=== PATIENT | male | born 1940 | race Caucasian/White ===

== ENCOUNTER 2024-04-18 12:12 | Emergency (ER) | payer OTHER, MEDICAID ==
[~2024-04-18] VITALS: Ht 167.6 cm; Wt 77.1 kg
--- NOTE | 2024-04-18 12:12 | NUR ---
83M CONFUSED PATIENT BIB BLS/ STRETCHER FROM [facility] WITH CC DISLODGED G TUBE. PER EMT, PT USED TO HAVE SIZE 20 GTUBE WHICH WAS PULLED OUT BY PATIENT. FAMILITY REQUESTING REPLACEMENT WITH SIZE 16. PT ALSO REPORTED TO HAVE BEEN GIVEN ATIVAN 1MG IM PRIOR TO BEING PICKED UP FROM [facility]. PATIENT CONFUSED, A/O X 0, UNABLE TO PROVIDE ANY RELEVANT HISTORY. PT SEEN BY ED MD ADAMS.
[2024-04-18 12:18] VITALS: BP 109/47; PULSE 83; RESP 20; TEMP 98.3; O2SAT 98
[2024-04-18 14:44] VITALS: TEMP 97.2; O2SAT 95
--- NOTE | 2024-04-18 15:12 | NUR ---
Patient sleeping on bed, no signs of distress. Call light within reach.
--- NOTE | 2024-04-18 17:04 | NUR ---
Spoke to Lori at [facility] to update them on patients pending arrival to facility.
[2024-04-18 17:05] VITALS: BP 116/43; PULSE 57; RESP 13
--- NOTE | 2024-04-18 17:05 | NUR ---
Patient discharged with v/s stable. Written and verbal after care instructions given and. Patient verbalized understanding. Ambulance Transport with to long-term. All questions addressed prior to discharge. Advised to follow up with PMD.
--- NOTE | 2024-04-18 17:10 | NUR ---
Chart checked and completed. The patient's care was reviewed and supervised by KAROLYN ZAMORA RN.
== END 2024-04-18 17:05 ==
LOC: MED 12:12
DX: K94.23 Gastrostomy malfunction (principal); F03.90 Unspecified dementia, unspecified severity, without behavioral disturbance, psychotic disturbance, mood disturbance, and anxiety; Z98.890 Other specified postprocedural states
CPT/HCPCS: 43762; 74240; 99284; Q0092; Q9967